=== PATIENT | female | born 1940 | race Caucasian/White ===

== ENCOUNTER 2023-12-03 06:54 | Day surgery (SDC) | payer OTHER, SELFPAY ==
[2023-12-03] VITALS (18 sets, daily range): BP systolic 134–168; BP diastolic 57–75; BMI 30.4
[2023-12-03] MEDS: NSS 248 ML IV (07:48)
[2023-12-03 10:45] LABS: ACT-LR - POC 199 Seconds (116-155)
--- NOTE | 2023-12-03 11:10 | CONSULT.STRU ---
Consultation
-
Date/Time Consultation Requested: 12/03/2023
Date/Time Consultation Performed: 12/03/2023
Requesting Provider: Bebo Guerra MD
Performing Provider: BERNA Vickers
Reason for Consultation: /TAVR
Patient History
Physicians
Family Physician: Cher Flores DO
Outpatient Insulation Batting Machine Operator: Rivera Posadas MD
Primary Insulation Batting Machine Operator: Rivera Posadas MD
History of Present Illness
Ms. Dodson is a very pleasant 83 yof that presents with severe symptomatic associated with FORBES. Her echocardiogram from 11/14/2023 is notable for an EF 55-60%, AV P/M 53/39, TED 1.0, DI 0.34, trace MR, PAP 26mmHg. Discussed the
pathophysiology and treatment options of aortic stenosis including SAVR and TAVR. Explained the evaluation process comprising of CT scan, CT surgical consult, dental clearance, and a heart team discussion. TAVR booklet, contact information,
prescriptions, and appointments given to patient. Allowed for and answered questions at bedside.
Past Medical History
Past Medical History: CAD (Stent to RCA (2020)), HTN and Other (hyperlipidemia)
Past Surgical History
Past Surgical History: None
Dental History
Dr. Melissa De Leon--> Patient will need to make an appointment (dental clearance form sent)
Family History
Mother: at Age (77) and Cause of (heart disease)
Father: at Age (46)
Social History
Alcohol: None
Drug: None
Tobacco: Non-Smoker
Personal:
Allergies
Allergy/AdvReac Type Severity Reaction Status Date / Time
clindamycin Allergy Swelling Verified 12/03/23 07:12
Home Medications
�Medication �Instructions �Recorded �Confirmed �Type
aspirin 81 mg chewable tablet 81 mg PO DAILY 12/03/23 12/03/23 History
carvedilol 25 mg tablet 25 mg PO BID 12/03/23 12/03/23 History
diltiazem HCl 240 mg 240 mg PO DAILY 12/03/23 12/03/23 History
capsule,extended release 24 hr
furosemide 20 mg tablet 20 mg PO DAILY 12/03/23 12/03/23 History
losartan 50 mg tablet 50 mg PO DAILY 12/03/23 12/03/23 History
STS%
STS %: 3.62
Review of Systems
-
History Source: Patient
General: Reports Fatigue
HEENT: Reports No Symptoms
Respiratory: Reports FORBES
Cardiac: Reports No Symptoms
Abdomen/GI: Reports No Symptoms
: Reports No Symptoms
Musculoskeletal: Reports No Symptoms
Skin: Reports No Symptoms
Neurological: Reports No Symptoms
Vascular: Reports No Symptoms
Physical Exam
Vital Signs
Temp 98.4 F 12/03/23 07:22
Pulse 58 12/03/23 10:55
Resp Rate 16 12/03/23 10:55
Blood pressure 159/69 12/03/23 10:55
Blood pressure extremity used: Left upper arm 12/03/23 07:22
Position: Lying 12/03/23 07:22
MAP (cuff-Frida Monitor) 95 12/03/23 10:55
SaO2 97 12/03/23 10:55
Oxygen Mode of Delivery Room air 12/03/23 07:22
Can the patient verbally communicate their pain? Yes 12/03/23 07:22
Actual Weight 82.8 kg 12/03/23 07:20
Body Mass Index (BMI) 30.4 12/03/23 07:20
Labs
11/28/2023
BUN/Creatinine: 171.12
GFR: 49
HH: 12.8/38.9
PLT: 224K
Diagnostic Studies
Procedure Type:�Isolated AVR
PERIOPERATIVE OUTCOME ESTIMATE %
Operative Mortality 3.62%
Morbidity & Mortality 8.48%
Stroke 1.28%
Renal Failure 1.37%
Reoperation 3.32%
Prolonged Ventilation 3.9%
Deep Sternal Wound Infection 0.047%
Long Hospital Stay (>14 days) 4.85%
Short Hospital Stay (<6 days)* 35.8%
Echocardiogram 11/14/2023:
CONCLUSIONS
Severe aortic stenosis. Peak gradient across the valve was 53mmHg with a mean
gradient of 39mmHg. TED 1.0 cm2,. Dimensionless index is 0.34.
Visual inspection raise concern for underestimation aortic valve area.
Consider other modality of evaluation for aortic stenosis.
Mild left ventricular hypertrophy
Hyperdynamic left ventricular systolic function.
Cardiac Catheterization :
CONCLUSIONS
1:�Severe aortic stenosis with mean gradient 40 mmHg
2:�Patent proximal RCA stent with mild residual multivessel CAD as described
3. Normal left ventricular function with EF 67%
4. Right lower extremity angiography demonstrating absence of severe vascular disease but incidentally noted is a very high common femoral artery bifurcation on the right
5. Continue evaluation for TAVR for symptomatic severe
Exam
General: Well Developed, Well Nourished and No Apparent Distress
HEENT: Normocephalic
Neck: Trachea Midline
Respiratory: Clear
Cardiac: Regular Rhythm and Murmur (IV/ ANDREI)
GI: Soft and Non Tender
Rectal: Deferred by Provider
Skin: Warm
Neuro: Awake and Alert
Psych: Calm
Assessment / Plan
-
Severe Aortic Stenosis
Continue TAVR evaluation
Trend creatinine after contrast administration (Rx given)
CT TAVR (12/16)
CT surgical consult (12/16 MPT)
Frailty testing and KCCQ12 at consult
Continue aspirin
Dental clearance
Heart team discussion
Data Reviewed
-
Roofing Sales Representative: Report Reviewed by me and Discussed with Physician
Echo: Report Reviewed by me and Discussed with Physician
Labs: Labs Reviewed by me
Old Records: Reviewed (Dr. Posadas and Dr. Guerra's office note)
Total Time Spent with Patient (in minutes): 45
--- NOTE | 2023-12-03 11:28 | ITS.CL.CATH ---
[facility] - Catheterization
Cardiac Catheterization
Procedure Report:
CARDIAC CATHETERIZATION REPORT
Date of Procedure: 12/03/2023
Referring: Rivera Posadas MD
Indication: Symptomatic severe aortic stenosis
�
HEMODYNAMIC DATA
AO: 168/77
LV: 208/22
There is a mean gradient of 40 mmHg across the aortic valve
�
LEFT VENTRICULOGRAPHY: Normal segmental wall motion with EF 67%
�
CORONARY ANGIOGRAPHY
Dominance: Right
Left Main: Short without focal stenosis
LAD: 30% proximal LAD stenosis with otherwise trivial luminal irregularities in the LAD proper. The medium to large first diagonal branch has 50-60% mid stenosis
Circumflex: The circumflex gives rise to a small OM1, a very large OM 2, and terminates with a small OM 3. There is smooth 40-50% proximal stenosis in the large OM 2
RCA: Smooth 40% proximal RCA stenosis.. There is a widely patent proximal to mid RCA stent with no restenosis and otherwise trivial luminal irregularities in the RCA proper. The medium sized RPDA has 60% ostial stenosis in the RCA terminates with
three moderate-sized right posterolateral branches
Right lower extremity angiography: Right lower extremity angiography demonstrates 20% ostial right common iliac artery stenosis and a widely patent external iliac and right common femoral arteries. The right femoral bifurcation is extremely high
above the level of the femoral head. She will need a complete TAVR CTA to be sure the left femoral artery can be used as an access site
�
Closure Device: None-the procedure was started via the right radial artery. Left coronary angiography was accomplished. Unfortunately she then developed innominate spasm making catheter advancement into the ascending aorta impossible. We
therefore converted to a right femoral artery approach using a 4 [place] sheath and 4 [place] JR4. An R band was placed on the radial site and manual compression used for hemostasis in the RFA.
�
Radiation (mGy): 316
DAP (cm2.Gy): 24.6
Fluoroscopy time: 7.6 minutes
�
CONCLUSIONS
1:�Severe aortic stenosis with mean gradient 40 mmHg
2:�Patent proximal RCA stent with mild residual multivessel CAD as described
3. Normal left ventricular function with EF 67%
4. Right lower extremity angiography demonstrating absence of severe vascular disease but incidentally noted is a very high common femoral artery bifurcation on the right
5. Continue evaluation for TAVR for symptomatic severe
�
�
Copy to: Rivera Posadas MD, Cher Flores,
�
Bebo Guerra MD, FACC, [facility]
== END 2023-12-03 14:40 | disposition home or self-care (01) ==
LOC: CATH 06:54
PROVIDERS: ATTENDING PHYSICIAN Internal Medicine Cardiovascular Disease; FAMILY PHYSICIAN Family Medicine; OTHER PHYSICIAN Internal Medicine Cardiovascular Disease
DX: I35.0 Nonrheumatic aortic (valve) stenosis (principal); I25.10 Atherosclerotic heart disease of native coronary artery without angina pectoris; Z95.5 Presence of coronary angioplasty implant and graft; I10 Essential (primary) hypertension; E78.49 Other hyperlipidemia; Z82.49 Family history of ischemic heart disease and other diseases of the circulatory system; Z79.82 Long term (current) use of aspirin
CPT/HCPCS: G0278; C1894; C1769; 85347; 93458; Q9967